=== PATIENT | female | born 1940 | race Caucasian/White ===

== ENCOUNTER → 2017-08-15 | Outpatient (CLI) | payer MEDICARE ==
[~2017-08-15] MED LIST: ALPR0.5T8 PO; APIX5TAB PO; ESOM40CA PO; EZET10 PO; FENT12PAT TD; IOPAMIDOL-370 75 ML VIAL IV ONE; LIDOP TP; MELO-108 PO; SENN8.6C5 PO; TIOT18CA3 IH; ZOLP6.252 PO
== END | disposition home or self-care (01) ==
LOC: DAH 09:35
PROVIDERS: ATTEND Internal Medicine Gastroenterology
DX: N20.0 Calculus of kidney (principal); J47.9 Bronchiectasis, uncomplicated; J84.10 Pulmonary fibrosis, unspecified; I10 Essential (primary) hypertension; E78.5 Hyperlipidemia, unspecified
CPT/HCPCS: 74178; Q9967

== ENCOUNTER 2018-12-01 11:19 | Inpatient (IN) | payer MEDICARE ==
[~2018-12-01] VITALS: Ht 157.5 cm; Wt 57.8 kg
[2018-12-01] VITALS (12 sets, daily range): BP systolic 87–144; BP diastolic 54–89
[~2018-12-01 11:19] MED LIST changes: -IOPAMIDOL-370 75 ML VIAL IV ONE
[2018-12-01] MEDS ORDERED: LACTATED RINGERS 1000ML 1,000 ML IV ONE ×2 (11:32→20:28)
[2018-12-01] MEDS ORDERED: NOREPINEPHRINE BITARTRATE 1 MG/1 ML ML IV ONE (11:32)
[2018-12-01] MEDS ORDERED: SODIUM CHLORIDE 0.9% 250 ML IV ONE (11:33)
[2018-12-01 11:43] LABS: ABG BASE EXCESS -0.2 mmol/L (-2.0-3.0); ABG HCO3 24.4 mmol/L (21.0-28.0); ABG OXYGEN SATURATION 99.5 % (95.0-99.0); ABG PCO2 40 mmHg (32-45)
[2018-12-01 12:29] LABS: BASOPHILS % (AUTO) 0.1 % (0.0-5.0); EOSINOPHILS % (AUTO) 0.5 % (0.0-8.0); HEMATOCRIT 39.9 % (36-48); LYMPHOCYTES % (AUTO) 1.5 % (21.0-51.0); MEAN CORPUSCULAR HEMOGLOBIN 25.7 pg (27.0-33.0); MEAN CORPUSCULAR HGB CONC 31.4 g/dL (32.0-36.0); MEAN CORPUSCULAR VOLUME 81.8 fL (79-99); MONOCYTES % (AUTO) 2.4 % (3.0-13.0); NEUTROPHILS % (AUTO) 95.5 % (40.0-77.0); PLATELET COUNT (AUTO) 196 K/uL (130-400); RED BLOOD CELL COUNT(AUTO) 4.88 MIL/uL (4.00-5.50); RED CELL DISTRIBUTION WIDTH 16.9 % (11.0-15.5)
[2018-12-01] MEDS ORDERED: ZOSYN 3.375GM+NS 50ML 50 ML IV ONE (12:29)
[2018-12-01] MEDS ORDERED: VANCOMYCIN 1GM+NS 250ML 250 ML IV ONE (12:40)
[2018-12-01] MEDS ORDERED: SODIUM CHLORIDE 0.9% 1000ML 1,000 ML IV ONE (12:41)
[2018-12-01 12:45] LABS: CREATININE 2.9 mg/dL (0.5-1.5); POTASSIUM 3.8 mmol/L (3.5-5.1)
[2018-12-01 12:49] LABS: INR 1.43 (0.85-1.15); PARTIAL THROMBOPLASTIN TIME 43.7 SEC (26.3-35.5); PROTHROMBIN TIME 14.9 SEC (9.6-11.6)
[2018-12-01 12:51] LABS: B-TYPE NATRIURETIC PEPTIDE 651 pg/mL (0-100)
[2018-12-01 13:08] LABS: ALBUMIN 2.8 g/dL (3.5-5.0); BILIRUBIN,DIRECT 0.2 mg/dL (0.0-0.3); BILIRUBIN,TOTAL 0.4 mg/dL (0.2-1.0); TOTAL PROTEIN, SERUM 6.7 g/dL (6.0-8.3)
[2018-12-01 13:21] LABS: BAND NEUTROPHILS % (MANUAL) 3 % (0-2); LYMPHOCYTES % (MANUAL) 2 % (22-44); MAN.DIFF COMMENT-IMPRESSION MANUAL DIFFERENTIAL; MONOCYTES % (MANUAL) 2 % (2-9); PLATELET MORPHOLOGY COMMENT ADEQUATE; SEGMENTED NEUTROPHILS % 93 % (40-70)
[2018-12-01] MEDS ORDERED: NEOMY SULF/BACITRA/POLYMYXIN B 1 EACH PACKET TP ONE (13:32)
[2018-12-01 14:12] LABS: APPEARANCE,URINE TURBID (CLEAR); BILIRUBIN,URINE NEGATIVE (NEGATIVE); COLOR,URINE YELLOW (YELLOW); GLUCOSE, URINE (UA) NEGATIVE (NEGATIVE); KETONES,URINE NEGATIVE (NEGATIVE); LEUKOCYTE ESTERASE ,URINE LARGE (NEGATIVE); NITRATE,URINE POSITIVE (NEGATIVE); OCCULT BLOOD,URINE LARGE (NEGATIVE); PROTEIN,URINE >=300 mg/dL (NEGATIVE)
[2018-12-01 14:18] LABS: WBC,URINE TNTC /HPF (0-1)
[2018-12-01 14:19] LABS: BACTERIA,URINE Many /HPF (None Seen); RBC,URINE 26-50 /HPF (0-1); SQUAMOUS EPITHELIAL CELL,UR Rare /HPF (0-2)
[2018-12-01] MEDS ORDERED: VANCOMYCIN PROTOCOL PER PHARMACY IV PRN (18:00)
[2018-12-01] MEDS ORDERED: COMPOUND IV REFRIGERATED 1 EACH IVSOLN MISC PRN (18:15)
--- NOTE | 2018-12-01 18:42 | NUR ---
RECEIVED FROM ER INTO ICU ROOM 207] VIA STRETCHER, MOANING, CONFUSED PHRASES, R.T. HERE & PLACED HER ON BIPAP ON PRESCRIBED SETTINGS. INITIATED BEDSIDE MONITORING. TACHYCARDIA WITH HR 130'S TO 140'S. RIGHT TIBIA WITH INTRAOSSEOUS ACCESS. RIGHT FEMORAL WITH TRIPLE LUMEN CENTRAL LINE. SOTO CATHETER SECURE TO LEG AND DRAINING BROWNISH CLOUDY URINE. ORIENTED TO ROOM. SPOUSE AT BEDSIDE. UPDATED REGARDING STATUS AND PLAN OF CARE.
--- NOTE | 2018-12-01 19:15 | NUR ---
ASSESSMENT: REPORT RECEIVED. PATIENT OPENS EYES TO VERBAL COMMANDS, ORIENTED X 1, INCOMPREHENSIBLE WORDS, LETHARGIC,FOLLOWS COMMANDS WITH EQUAL HAND INDEPENDENT FREIGHT AGENT, MOVES ALL EXTREMITIES, WENDY 3 MM , LUNGS CLEAR , SHORTNESS OF BREATH ,BIPAP 14/8 40% O2 SATURATION 100, HR ST 138. RIGHT TIBIA WITH INTRAOSSEOUS ACCESS. RIGHT FEMORAL WITH TRIPLE LUMEN CENTRAL LINE. SOTO CATHETER SECURE TO LEG PATENT WITH YELLOW URINE. PULSES PALPABLE, SPOUSE AT BEDSIDE. UPDATED REGARDING STATUS AND PLAN OF CARE. ADMISSION INFORMATION OBTAINED FROM . UNWILLING TO TAKE PATIENT'S JEWELRY/POSSESSIONS HOME, DOUBLE WRIST YELLOW BRACELET AND THICK YELLOW RING. CELL PHONE AND ARMORED TRUCK DRIVER.
[2018-12-01] MEDS ORDERED: FENT-77 TD (19:49)
[2018-12-01] MEDS ORDERED: TORS20TA4 PO (19:49)
[2018-12-01] MEDS ORDERED: POTA20PA41 PO (19:49)
[2018-12-01] MEDS ORDERED: LIDOP TP (19:49)
[2018-12-01] MEDS ORDERED: PRED5TAB44 PO (19:49)
[2018-12-01] MEDS ORDERED: MONT10TA24 PO (19:49)
[2018-12-01] MEDS ORDERED: TIOT4MIS3 IH (19:49)
[2018-12-01] MEDS ORDERED: FAMO40TA7 PO (19:49)
--- NOTE | 2018-12-01 20:24 | NUR ---
LUCIA FRY,CALENDER TENDER NOTIFIED OF PATIENT'S STATUS HR 138, ON BIPAP , LETHARGIC, ON LEVOPHED 2 MCG/MIN- NEW ORDERS RECEIVED.
[2018-12-01] MEDS ORDERED: PHENYLEPHRINE HCL 10 MG in SODIUM CHLORIDE 0.9% 250 ML IV PRN (20:30)
[2018-12-01] MEDS: LACTATED RINGERS 1000ML 1,000 ML IV SCH (20:32)
--- NOTE | 2018-12-01 20:32 | NUR ---
COOL PACKS AND TYLENOL GIVEN FOR TEMP 102.7. LR STARTED AT 100 ML/HR
[2018-12-01] MEDS: ACETAMINOPHEN 325 MG TAB PO PRN (20:34)
[2018-12-01] MEDS: HEPARIN SODIUM 5000UNIT/ML 1ML VIAL SQ SCH (20:34)
[2018-12-01] MEDS: FAMOTIDINE/PF 20 MG/2 ML VIAL IV SCH (20:34)
[2018-12-01] MEDS ORDERED: NOREPINEPHRINE 4MG/NS 250ML 250 ML IV SCH (20:45)
[2018-12-02] VITALS (59 sets, daily range): BP systolic 58–153; BP diastolic 21–113
[2018-12-02] MEDS: ACETAMINOPHEN 325 MG TAB PO PRN (02:31)
[2018-12-02 04:09] LABS: HEMATOCRIT 36.5 % (36-48); MEAN CORPUSCULAR HEMOGLOBIN 25.8 pg (27.0-33.0); MEAN CORPUSCULAR HGB CONC 31.4 g/dL (32.0-36.0); MEAN CORPUSCULAR VOLUME 82.2 fL (79-99); PLATELET COUNT (AUTO) 149 K/uL (130-400); RED BLOOD CELL COUNT(AUTO) 4.45 MIL/uL (4.00-5.50); RED CELL DISTRIBUTION WIDTH 16.9 % (11.0-15.5); WHITE BLOOD COUNT (AUTO) 15.2 K/uL (4.8-10.8)
[2018-12-02 04:23] LABS: CREATININE 2.2 mg/dL (0.5-1.5); POTASSIUM 3.4 mmol/L (3.5-5.1)
[2018-12-02] MEDS: LACTATED RINGERS 1000ML 1,000 ML IV SCH ×2 (04:34→16:30)
[2018-12-02] MEDS: FAMOTIDINE/PF 20 MG/2 ML VIAL IV SCH ×2 (08:37→21:07)
[2018-12-02] MEDS: HEPARIN SODIUM 5000UNIT/ML 1ML VIAL SQ SCH ×2 (08:38→14:00)
[2018-12-02] MEDS: ZOSYN 3.375GM+NS 50ML 50 ML IV SCH ×2 (08:38→21:07)
[2018-12-02 10:58] LABS: ABG BASE EXCESS 1.1 mmol/L (-2.0-3.0); ABG HCO3 27.5 mmol/L (21.0-28.0); ABG OXYGEN SATURATION 91.5 % (95.0-99.0); ABG PCO2 50 mmHg (32-45)
[2018-12-02 11:31] LABS: ALBUMIN 2.3 g/dL (3.5-5.0); BILIRUBIN,DIRECT 0.2 mg/dL (0.0-0.3); BILIRUBIN,TOTAL 0.4 mg/dL (0.2-1.0)
[2018-12-02 11:43] LABS: TROPONIN I 0.07 ng/mL (0.00-0.06)
[2018-12-02 12:00] LABS: THYROID STIMULATING HORMONE 0.53 uIU/mL (0.36-3.74)
[2018-12-02] MEDS ORDERED: SENNOSIDES 8.6 MG TABLET PO PRN (14:30)
[2018-12-02] MEDS ORDERED: MORPHINE SULFATE 2 MG/ML 1ML SYG ONE (15:52)
--- NOTE | 2018-12-02 17:47 | NUR ---
cm note met with patient and spouse, resides at home with spouse, pt independent with bath and ambulation, [facility] has a walker but does not need to use it. also has portable o2 and concentrator uses as needed. [facility] dc plan is back to same home setting at [facility]. no dc needs. spouse drives pt to md, etc. Addendum: 12/02/18 at 1749 by KENY GAVIN CM Amended: Links added.
[2018-12-02] MEDS: IPRATROPIUM 0.5 MG/2.5 ML INH IH SCH ×2 (18:36→23:29)
[2018-12-02] MEDS: ALBUTEROL SULFATE 0.083% 2.5 MG/3 ML INH IH SCH ×2 (18:37→23:29)
[2018-12-02] MEDS: BUDESONIDE 0.5 MG/2 ML INH IH SCH (18:37)
--- NOTE | 2018-12-02 18:45 | NUR ---
Received report ,pt is DNR on Levophed @4mcg.Pt. has right femoral central line.Pt. is alert and oriented following commands.Pt. instructed to use call light for assistance.Call light placed within reach.
--- NOTE | 2018-12-02 21:05 | NUR ---
Order clarified with LIFT TRUCK MECHANIC Zuleyma Deras regarding pt on both heprain subcutaneous and Eliquis.p.o.Received order to discontinue heprain subcutaneous.
[2018-12-02] MEDS: MONTELUKAST SODIUM 10 MG TAB PO SCH (21:07)
[2018-12-02] MEDS: APIXABAN 5 MG TABLET PO SCH (21:07)
[2018-12-02] MEDS: EZETIMIBE 10 MG TAB PO SCH (21:07)
[2018-12-03] VITALS (22 sets, daily range): BP systolic 89–132; BP diastolic 54–77
[2018-12-03] MEDS: LACTATED RINGERS 1000ML 1,000 ML IV SCH ×3 (04:03→23:10)
[2018-12-03 04:57] LABS: ALANINE AMINOTRANSFERASE 48 U/L (12-78); ALBUMIN 2.1 g/dL (3.5-5.0); ASPARTATE AMINOTRANSFERASE 66 U/L (10-37); BILIRUBIN,TOTAL 0.3 mg/dL (0.2-1.0); CARBON DIOXIDE 32 mmol/L (21-32); CHLORIDE 105 mmol/L (101-111); CREATININE 1.5 mg/dL (0.5-1.5); GLOMERULAR FILTR. RATE CALC 36 mL/min (>60); GLUCOSE,RANDOM 199 mg/dL (70-105); PHOSPHORUS 2.7 mg/dL (2.5-4.9); POTASSIUM 3.1 mmol/L (3.5-5.1); SODIUM SERUM 144 mmol/L (136-145); TOTAL PROTEIN, SERUM 5.8 g/dL (6.0-8.3); UREA NITROGEN, BLOOD 35 mg/dL (7-18)
[2018-12-03 04:59] LABS: AMMONIA < 3 umol/L (11-32); CREATINE KINASE, TOTAL 633 U/L (21-232)
[2018-12-03 05:17] LABS: BASOPHILS % (AUTO) 0.1 % (0.0-5.0); EOSINOPHILS % (AUTO) 0.7 % (0.0-8.0); HEMATOCRIT 30.1 % (36-48); LYMPHOCYTES % (AUTO) 3.6 % (21.0-51.0); MEAN CORPUSCULAR HGB CONC 31.5 g/dL (32.0-36.0); MEAN CORPUSCULAR VOLUME 82.5 fL (79-99); MONOCYTES % (AUTO) 2.4 % (3.0-13.0); NEUTROPHILS % (AUTO) 93.2 % (40.0-77.0); RED BLOOD CELL COUNT(AUTO) 3.65 MIL/uL (4.00-5.50); RED CELL DISTRIBUTION WIDTH 17.4 % (11.0-15.5); WHITE BLOOD COUNT (AUTO) 6.2 K/uL (4.8-10.8)
[2018-12-03 05:44] LABS: PLATELET COUNT (AUTO) 144 K/uL (130-400)
[2018-12-03 05:45] LABS: B-TYPE NATRIURETIC PEPTIDE 323 pg/mL (0-100)
--- NOTE | 2018-12-03 07:09 | NUR ---
made rounds and updated with pt. condition and lab results.Received new order.
[2018-12-03] MEDS ORDERED: POTASSIUM CHLORIDE 20 MEQ ERTAB PO PRN (07:15)
[2018-12-03] MEDS ORDERED: POTASSIUM CHLORIDE 10% ELIXIR 20 MEQ/15 ML UDCUP PO PRN (07:15)
[2018-12-03] MEDS ORDERED: LIDOCAINE HCL-MPF 1% 2ML VIAL IVP PRN (07:15)
[2018-12-03] MEDS: BUDESONIDE 0.5 MG/2 ML INH IH SCH ×2 (07:42→20:18)
[2018-12-03] MEDS: ALBUTEROL SULFATE 0.083% 2.5 MG/3 ML INH IH SCH ×3 (07:42→20:05)
[2018-12-03] MEDS: IPRATROPIUM 0.5 MG/2.5 ML INH IH SCH ×3 (07:44→20:05)
[2018-12-03] MEDS: FAMOTIDINE/PF 20 MG/2 ML VIAL IV SCH ×2 (09:00→21:24)
[2018-12-03] MEDS: ZOSYN 3.375GM+NS 50ML 50 ML IV SCH ×2 (09:30→21:24)
[2018-12-03] MEDS ORDERED: MIDODRINE HCL 5 MG TABLET ONE (10:04)
[2018-12-03] MEDS: PANTOPRAZOLE SODIUM 40 MG TABLET.DR PO SCH (10:05)
[2018-12-03] MEDS: APIXABAN 5 MG TABLET PO SCH ×2 (10:05→21:23)
[2018-12-03] MEDS ORDERED: MIDODRINE HCL 5 MG TABLET PO SCH (12:08)
[2018-12-03] MEDS ORDERED: VANCOMYCIN 0.75 GM in SODIUM CHLORIDE 0.9% 250 ML IV SCH (12:30)
[2018-12-03] MEDS: MIDODRINE HCL 5 MG TABLET PO SCH ×2 (14:43→21:23)
[2018-12-03] MEDS: EZETIMIBE 10 MG TAB PO SCH (21:23)
[2018-12-03] MEDS: MONTELUKAST SODIUM 10 MG TAB PO SCH (21:23)
--- NOTE | 2018-12-03 23:00 | NUR ---
Pt.c/o Left lower quadrant pain,HEELER Qing was called and notified.Received new order.
[2018-12-03] MEDS ORDERED: MORPHINE SULFATE 2 MG/ML 1ML SYG ONE (23:02)
[2018-12-04] VITALS (7 sets, daily range): BP systolic 98–146; BP diastolic 58–82
[2018-12-04] MEDS: ALBUTEROL SULFATE 0.083% 2.5 MG/3 ML INH IH SCH ×5 (00:18→23:43)
[2018-12-04] MEDS: IPRATROPIUM 0.5 MG/2.5 ML INH IH SCH ×5 (00:18→23:43)
[2018-12-04 03:56] LABS: BASOPHILS % (AUTO) 0.1 % (0.0-5.0); HEMATOCRIT 28.8 % (36-48); LYMPHOCYTES % (AUTO) 2.9 % (21.0-51.0); MEAN CORPUSCULAR HEMOGLOBIN 26.2 pg (27.0-33.0); PLATELET COUNT (AUTO) 98 K/uL (130-400); RED BLOOD CELL COUNT(AUTO) 3.51 MIL/uL (4.00-5.50); RED CELL DISTRIBUTION WIDTH 17.3 % (11.0-15.5)
[2018-12-04 04:07] LABS: CREATININE 1.3 mg/dL (0.5-1.5); MAGNESIUM 2.1 mg/dL (1.80-2.40); PHOSPHORUS 1.9 mg/dL (2.5-4.9)
[2018-12-04 04:29] LABS: POTASSIUM 2.8 mmol/L (3.5-5.1)
[2018-12-04] MEDS: POTASSIUM CHLORIDE 20MEQ/100ML 100 ML IV PRN (05:09)
[2018-12-04] MEDS: MIDODRINE HCL 5 MG TABLET PO SCH ×3 (06:39→22:00)
[2018-12-04] MEDS: PANTOPRAZOLE SODIUM 40 MG TABLET.DR PO SCH (06:39)
[2018-12-04] MEDS: BUDESONIDE 0.5 MG/2 ML INH IH SCH ×2 (07:50→19:01)
--- NOTE | 2018-12-04 08:00 | NUR ---
Blood culture results positive for ESBL e.coli; reported to Terell Bañuelos NP for [facility]. Pt already on vanco and zosyn. Also notified PATIENT ESCORT that pt has not had BM since 11/30. Regarding bcx, rec'd orders for picc placement and dc planning for snf; regarding no bm, rec'd orders for lactulose docusate, senna.
[2018-12-04] MEDS ORDERED: LACTULOSE 20 GM/30 ML UDCUP PO PRN (08:15)
[2018-12-04] MEDS: LACTATED RINGERS 1000ML 1,000 ML IV SCH ×2 (08:30→18:30)
--- NOTE | 2018-12-04 08:45 | NUR ---
PT anxious, c/o llq pain, abd soft, tender. Pt refused all po meds, is anxious at present. PRN morphine administered. Will re-attempt when pain resolved.
[2018-12-04] MEDS: MORPHINE SULFATE 2 MG/ML 1ML SYG IVP PRN (08:48)
[2018-12-04] MEDS: FAMOTIDINE/PF 20 MG/2 ML VIAL IV SCH ×2 (08:48→21:52)
[2018-12-04] MEDS: ZOSYN 3.375GM+NS 50ML 50 ML IV SCH ×2 (08:54→21:56)
[2018-12-04] MEDS: DOCUSATE SODIUM 100 MG CAP PO SCH ×2 (09:00→21:00)
[2018-12-04] MEDS: APIXABAN 5 MG TABLET PO SCH ×2 (09:00→21:00)
--- NOTE | 2018-12-04 12:00 | NUR ---
Rec'd telephone order for fleets enema from LANCE Bryan after reporting that pt refused all po meds this am. Enema administered, pt assisted to bedside commode. Pt unable to pass stool except for one small hard piece. Pt became tired and was assisted back to bed; LANCE Leon in room, reported pink tinge to stool, abd pain. Rec'd order for not to attempt manual disimpaction, no further fleets at present, until results of KUB.
--- NOTE | 2018-12-04 12:28 | NUR ---
Ativan 0.5 mg given for anxiety.
[2018-12-04] MEDS ORDERED: LORAZEPAM 2 MG/ML 1 ML VIAL IVP ONE ×2 (13:20→15:15)
--- NOTE | 2018-12-04 13:27 | NUR ---
HR 140's on tele monitor, respiration 52, O2 sat 70%. Pt pale, diaphoretic. Random glucose wnl. Placed pt on NRB mask, o2 sat up to 96%. Notified RICHI Hannah NP. Orders rec'd for another dose of Ativan, which was given. Labs, abg's drawn. Pt placed on bipap, initiated 500 ml bolus.
[2018-12-04] MEDS ORDERED: SODIUM CHLORIDE 0.9% 500ML 500 ML IV ONE (13:35)
[2018-12-04 13:44] LABS: ABG BASE EXCESS 2.6 mmol/L (-2.0-3.0); ABG HCO3 28.6 mmol/L (21.0-28.0); ABG OXYGEN SATURATION 79.1 % (95.0-99.0); ABG PCO2 50 mmHg (32-45)
[2018-12-04] MEDS ORDERED: SODIUM CHLORIDE 0.9% 500ML 500 ML IV SCH (13:45)
--- NOTE | 2018-12-04 14:30 | NUR ---
Dr. Salinas in room, pt still somewhat restless, but had calmed since administration of 2nd dose ativan. Mittens applied, order from Dr. Salinas to remove femoral central line when picc placed, prn haldol 2.5 mg iv (1st dose now), lasix 20 iv x 1. Bipap removed by Dr. Salinas, NRB replaced. Meds given, 1:1 sitter in room.
[2018-12-04 14:38] LABS: ALBUMIN 2.1 g/dL (3.5-5.0); BILIRUBIN,TOTAL 0.8 mg/dL (0.2-1.0); CREATININE 1.1 mg/dL (0.5-1.5); POTASSIUM 4.9 mmol/L (3.5-5.1); TOTAL PROTEIN, SERUM 6.3 g/dL (6.0-8.3)
[2018-12-04 14:39] LABS: BASOPHILS % (AUTO) 0.2 % (0.0-5.0); EOSINOPHILS % (AUTO) 0.1 % (0.0-8.0); HEMATOCRIT 32.8 % (36-48); LYMPHOCYTES % (AUTO) 1.7 % (21.0-51.0); MEAN CORPUSCULAR HEMOGLOBIN 25.7 pg (27.0-33.0); MEAN CORPUSCULAR HGB CONC 31.2 g/dL (32.0-36.0); MEAN CORPUSCULAR VOLUME 82.4 fL (79-99); MONOCYTES % (AUTO) 3.8 % (3.0-13.0); NEUTROPHILS % (AUTO) 94.2 % (40.0-77.0); PLATELET COUNT (AUTO) 115 K/uL (130-400); RED BLOOD CELL COUNT(AUTO) 3.98 MIL/uL (4.00-5.50); RED CELL DISTRIBUTION WIDTH 17.7 % (11.0-15.5)
[2018-12-04] MEDS ORDERED: HALOPERIDOL LACTATE 5 MG/ML VIAL IV SCH (16:15)
[2018-12-04] MEDS ORDERED: FUROSEMIDE 10 MG/ML 2ML VIAL IV SCH (16:15)
--- NOTE | 2018-12-04 16:23 | NUR ---
DC PLAN VISITED WITH PATIENT AND SPOUSE. PATIENT CONDITION WORSENED VERIFIED WITH ABOUT DNR. SAID YES VERY CLEAR ON THE DNR. PATIENT NOT STABLE FOR TRANSFER TO ANOTHER FACILITY. SPOKE TO JACIEL LET HER KNOW ALSO THAT I NEEDED TO KNOW ABOUT WHICH ABX, LENGTH OF NEED AND IF PATIENT NEEDED PICC LINE. SHE ASKED IF DR. Guillory WAS ON THE CASE I SAID NO AND IF SHE WANTED HIM CONSULTED. SAID NO PATIENT IS ALREADY A DAY 3. CM WILL CONTINUE TO FOLLOW. Addendum: 12/04/18 at 1626 by CHRIS KIRAN RN CM Amended: Links added.
--- NOTE | 2018-12-04 17:00 | NUR ---
Placed new johansen cath per RICHI Hannah's orders. 16 serbian, sterile technique per hospital protocol. Statlock applied. Rec'd 600 cc light david urine. Pt tolerated well. at side during entire shift.
--- NOTE | 2018-12-04 18:00 | NUR ---
Message left with Dr. Garcia to notify of consult, no response.
[2018-12-04] MEDS: MONTELUKAST SODIUM 10 MG TAB PO SCH (21:00)
[2018-12-04] MEDS: EZETIMIBE 10 MG TAB PO SCH (21:00)
[2018-12-04] MEDS: LORAZEPAM 2 MG/ML 1 ML VIAL IVP PRN (22:24)
[2018-12-04] MEDS: HALOPERIDOL LACTATE 5 MG/ML VIAL IV PRN (23:03)
[2018-12-05] MEDS: MORPHINE SULFATE 2 MG/ML 1ML SYG IVP PRN ×4 (01:52→15:56)
[2018-12-05 03:00] VITALS: BP 140/78
[2018-12-05] MEDS: LACTATED RINGERS 1000ML 1,000 ML IV SCH (04:09)
[2018-12-05] MEDS: MIDODRINE HCL 5 MG TABLET PO SCH ×3 (06:00→21:26)
[2018-12-05] MEDS: ALBUTEROL SULFATE 0.083% 2.5 MG/3 ML INH IH SCH ×5 (06:14→23:35)
[2018-12-05] MEDS: IPRATROPIUM 0.5 MG/2.5 ML INH IH SCH ×4 (06:14→23:35)
[2018-12-05] MEDS: BUDESONIDE 0.5 MG/2 ML INH IH SCH ×2 (06:15→18:20)
[2018-12-05] MEDS: PANTOPRAZOLE SODIUM 40 MG TABLET.DR PO SCH (06:21)
[2018-12-05] MEDS ORDERED: DEXTROSE 50%-WATER 50 ML DISP.SYRIN IV PRN (06:30)
[2018-12-05] MEDS ORDERED: GLUCAGON 1MG KIT 1 MG ML IM PRN (06:30)
[2018-12-05 07:23] LABS: BASOPHILS % (AUTO) 0.2 % (0.0-5.0); HEMATOCRIT 34.8 % (36-48); LYMPHOCYTES % (AUTO) 6.4 % (21.0-51.0); MEAN CORPUSCULAR HEMOGLOBIN 25.7 pg (27.0-33.0); MEAN CORPUSCULAR HGB CONC 30.8 g/dL (32.0-36.0); MEAN CORPUSCULAR VOLUME 83.2 fL (79-99); MONOCYTES % (AUTO) 5.4 % (3.0-13.0); PLATELET COUNT (AUTO) 111 K/uL (130-400); RED BLOOD CELL COUNT(AUTO) 4.18 MIL/uL (4.00-5.50); RED CELL DISTRIBUTION WIDTH 17.7 % (11.0-15.5); WHITE BLOOD COUNT (AUTO) 10.2 K/uL (4.8-10.8)
--- NOTE | 2018-12-05 07:30 | NUR ---
ASSESSMENT PT IS AGITATED, ON BIPAP. 1:1 SITTER AT BEDSIDE. BREATHING PATTERN IS TACHYPNIC ON BIPAP. MD ROUNDED AND ORDERS RECEIVED.
[2018-12-05 07:37] VITALS: BP 129/68
[2018-12-05 07:44] LABS: PARTIAL THROMBOPLASTIN TIME 28.9 SEC (26.3-35.5); PROTHROMBIN TIME 10.5 SEC (9.6-11.6)
[2018-12-05 07:45] LABS: ALBUMIN 2.5 g/dL (3.5-5.0); BILIRUBIN,TOTAL 0.5 mg/dL (0.2-1.0); CREATININE 1.1 mg/dL (0.5-1.5); MAGNESIUM 1.6 mg/dL (1.80-2.40); TOTAL PROTEIN, SERUM 6.4 g/dL (6.0-8.3)
[2018-12-05] MEDS ORDERED: FUROSEMIDE 10 MG/ML 2ML VIAL IV SCH (07:45)
--- NOTE | 2018-12-05 07:45 | NUR ---
STATUS PRN MORPHINE GIVEN, POTASSIUM IV PER PROTOCOL GIVEN. 1:1 SITTER AT BEDSIDE, CONTINUING TO MONITOR.
[2018-12-05 07:49] LABS: POTASSIUM 2.4 mmol/L (3.5-5.1)
[2018-12-05] MEDS: POTASSIUM CHLORIDE 20MEQ/100ML 100 ML IV PRN ×5 (08:13→23:46)
[2018-12-05] MEDS: APIXABAN 5 MG TABLET PO SCH ×2 (08:13→21:00)
[2018-12-05] MEDS: POLYETHYLENE GLYCOL 3350 17 GM POWD.PACK PO SCH (08:13)
[2018-12-05] MEDS: DOCUSATE SODIUM 100 MG CAP PO SCH ×2 (08:14→21:00)
[2018-12-05] MEDS: ZOSYN 3.375GM+NS 50ML 50 ML IV SCH (08:16)
[2018-12-05] MEDS: FAMOTIDINE/PF 20 MG/2 ML VIAL IV SCH (08:17)
--- NOTE | 2018-12-05 08:30 | NUR ---
STATUS RESTING IN BED, BREATHING PATTERN IS CALMER NOW, REMAINS ON BIPAP, 1:1 SITTER AT BEDSIDE.
--- NOTE | 2018-12-05 11:30 | NUR ---
STATUS PATIENT IS RESTING, 1:1 SITTER AT BEDSIDE, ALSO AT BEDSIDE. UPDATES GIVEN.
--- NOTE | 2018-12-05 11:46 | NUR ---
Patient very combative, but is able to comprehend. Has been trying to take bipap throughout morning. Patient was placed on 40% venti mask for oral care and comfort. Rendered oral care, patient became more calm after being off bipap. Addendum: 12/05/18 at 1358 by MATT MCNAMARA RT Amended: Links added.
[2018-12-05] MEDS: MEROPENEM 1 GM VIAL IVP SCH ×2 (12:21→20:22)
[2018-12-05 12:24] VITALS: BP 126/84
[2018-12-05 12:30] LABS: POTASSIUM 2.5 mmol/L (3.5-5.1)
--- NOTE | 2018-12-05 12:35 | NUR ---
REPORT GIVEN TO PEDRO KENYON
[2018-12-05] MEDS: LORAZEPAM 2 MG/ML 1 ML VIAL IVP PRN (12:54)
--- NOTE | 2018-12-05 13:02 | NUR ---
PT STATUS REPORT RECEIVED FROM PRIMARY NURSE, PT WITH 1:1 SITTER, AGITATED, RESTLESS AND SWIGGING ARMS IN MITTENS, ATIVAN 1MG GIVEN IVP, PT CALM AND RESTING COMFORTABLE NOW, SPOUSE AT BEDSIDE, ALL QUESTIONS AND CONCERNS ANSWERED.
[2018-12-05 15:18] VITALS: BP 131/80
[2018-12-05 19:22] VITALS: BP 101/68
--- NOTE | 2018-12-05 20:00 | NUR ---
ASSESSED PT FOR PICC PLACEMENT, PT CONFUSED AND COMBATIVE. NOT ABLE TO ASSESS ARM FOR VEIN ACCESS. NOTIFIED PRIMARY NURSE OF NOT ABLE TO DO PICC LINE AT THIS TIME.
[2018-12-05] MEDS: HALOPERIDOL LACTATE 5 MG/ML VIAL IV PRN (20:16)
[2018-12-05] MEDS: MONTELUKAST SODIUM 10 MG TAB PO SCH (21:00)
[2018-12-05] MEDS: LACTULOSE 20 GM/30 ML UDCUP PO SCH (21:00)
[2018-12-05] MEDS: EZETIMIBE 10 MG TAB PO SCH (21:00)
[2018-12-05 23:07] VITALS: BP 107/71
[2018-12-06 03:18] VITALS: BP 113/78
[2018-12-06] MEDS: MEROPENEM 1 GM VIAL IVP SCH ×3 (03:36→21:14)
[2018-12-06] MEDS: MIDODRINE HCL 5 MG TABLET PO SCH ×3 (03:37→22:00)
[2018-12-06] MEDS: MORPHINE SULFATE 2 MG/ML 1ML SYG IVP PRN ×3 (03:43→13:10)
[2018-12-06] MEDS: ALBUTEROL SULFATE 0.083% 2.5 MG/3 ML INH IH SCH ×4 (07:02→18:58)
[2018-12-06] MEDS: IPRATROPIUM 0.5 MG/2.5 ML INH IH SCH ×4 (07:02→19:03)
[2018-12-06] MEDS: BUDESONIDE 0.5 MG/2 ML INH IH SCH ×2 (07:02→19:09)
--- NOTE | 2018-12-06 07:35 | NUR ---
Bedside report given to incoming NOD using SBAR.All questions answered.
[2018-12-06 07:40] VITALS: BP 118/66
[2018-12-06] MEDS: APIXABAN 5 MG TABLET PO SCH ×2 (09:00→21:00)
[2018-12-06] MEDS ORDERED: METHYLPREDNISOLONE SOD SUCC 125MG/2ML VIAL IVP SCH (09:00)
[2018-12-06] MEDS: LACTULOSE 20 GM/30 ML UDCUP PO SCH ×2 (09:00→21:00)
[2018-12-06] MEDS: DOCUSATE SODIUM 100 MG CAP PO SCH ×2 (09:00→21:00)
[2018-12-06] MEDS: FAMOTIDINE/PF 20 MG/2 ML VIAL IV SCH (09:59)
[2018-12-06] MEDS: POLYETHYLENE GLYCOL 3350 17 GM POWD.PACK PO SCH (11:18)
[2018-12-06] MEDS ORDERED: FUROSEMIDE 10 MG/ML 4ML VIAL IV SCH (11:30)
--- NOTE | 2018-12-06 11:42 | NUR ---
DC PLAN VISITED WITH . PATIENT STILL CONFUSED AND HAVING RESPIRATORY ISSUES. SPENT 30 MIN WITH DISCUSSING LTAC. SAID WANTS TO WAIT 2 DAYS BEFORE MAKING DECISION. IF IT LOOKS LIKE ABX ARE WORKING THEN OKAY TO LTAC IF NO THEN [facility] WILL BE HOSPICE. DISCUSSED HOSPICE THE DIFFERENT OPTIONS AND HOW IT WORKS. SAID WILL THINK ABOUT IT WILL TALK TO MD'S. Addendum: 12/06/18 at 1148 by CHRIS KIRAN RN CM Amended: Links added.
[2018-12-06] MEDS ORDERED: PHARMACY COMMUNICATION MISC SCH (11:45)
[2018-12-06] MEDS: INSULIN HUMULIN R 100 UNIT/ML 3ML SQ SCH ×2 (12:00→19:36)
--- NOTE | 2018-12-06 14:00 | NUR ---
UPDATED BRIAN RIZVI OPERATIONS STAFF SPECIALIST SECURITY ON PATIENT STATUS. STATES SHE INFORMED DR. HANNA AND HE WILL GO SEE PT.
--- NOTE | 2018-12-06 14:07 | NUR ---
ORDER TO USE PICC LINE OBTAINED.
[2018-12-06] MEDS: LINEZOLID 600 MG/ISO-OSM 300 ML IV SCH (14:10)
[2018-12-06 14:27] LABS: ABG BASE EXCESS 3.3 mmol/L (-2.0-3.0); ABG HCO3 28.8 mmol/L (21.0-28.0); ABG OXYGEN SATURATION 87.8 % (95.0-99.0); ABG PCO2 47 mmHg (32-45)
[2018-12-06 14:31] VITALS: BP 159/89
[2018-12-06] MEDS: LORAZEPAM 2 MG/ML 1 ML VIAL IVP PRN (14:52)
--- NOTE | 2018-12-06 15:01 | NUR ---
DR. HANNA SAW PATIENT. NEW ORDERS RECEIVED. UPDATED ON ABG RESULTS. NEW ORDERS RECEIVED.
[2018-12-06 15:16] VITALS: BP 158/82
[2018-12-06] MEDS ORDERED: CLINIMIX E 5%-15% 2,000 ML IV SCH (17:45)
[2018-12-06] MEDS: METHYLPREDNISOLONE SOD SUCC 40MG/ML 1ML IVP SCH (18:43)
[2018-12-06 19:08] VITALS: BP 143/81
[2018-12-06] MEDS: EZETIMIBE 10 MG TAB PO SCH (21:00)
[2018-12-06] MEDS: MONTELUKAST SODIUM 10 MG TAB PO SCH (21:00)
[2018-12-06] MEDS: FUROSEMIDE 10 MG/ML 2ML VIAL IV SCH (21:14)
[2018-12-06 23:12] VITALS: BP 149/70
[2018-12-07] MEDS: ALBUTEROL SULFATE 0.083% 2.5 MG/3 ML INH IH SCH
[2018-12-07] MEDS: IPRATROPIUM 0.5 MG/2.5 ML INH IH SCH ×5 (00:05→23:20)
[2018-12-07] MEDS: METHYLPREDNISOLONE SOD SUCC 40MG/ML 1ML IVP SCH ×3 (00:16→22:04)
[2018-12-07] MEDS: INSULIN HUMULIN R 100 UNIT/ML 3ML SQ SCH ×4 (00:32→18:24)
--- NOTE | 2018-12-07 03:00 | NUR ---
Assumed care at this time,pt. resting quietly at this time,pt. has been tachypneic and tachycardic,on Bipap occasionally moving lower extremeties but to no direction.Appears calm and comfortable.
[2018-12-07] MEDS: LINEZOLID 600 MG/ISO-OSM 300 ML IV SCH ×2 (03:04→13:06)
[2018-12-07 04:08] LABS: EOSINOPHILS % (AUTO) 0.1 % (0.0-8.0); HEMATOCRIT 38.5 % (36-48); MEAN CORPUSCULAR HGB CONC 30.2 g/dL (32.0-36.0); MEAN CORPUSCULAR VOLUME 86.2 fL (79-99); MONOCYTES % (AUTO) 2.9 % (3.0-13.0); NUCLEATED RED BLOOD CELLS 0.1 % (0.0-0.19); PLATELET COUNT (AUTO) 309 K/uL (130-400); RED BLOOD CELL COUNT(AUTO) 4.46 MIL/uL (4.00-5.50); RED CELL DISTRIBUTION WIDTH 18.9 % (11.0-15.5); WHITE BLOOD COUNT (AUTO) 13.1 K/uL (4.8-10.8)
[2018-12-07] MEDS: MIDODRINE HCL 5 MG TABLET PO SCH ×3 (04:14→21:42)
[2018-12-07] MEDS: MEROPENEM 1 GM VIAL IVP SCH ×3 (04:19→22:03)
[2018-12-07 04:23] LABS: ALBUMIN 2.4 g/dL (3.5-5.0); BILIRUBIN,TOTAL 0.4 mg/dL (0.2-1.0); CREATININE 1.7 mg/dL (0.5-1.5); MAGNESIUM 2.3 mg/dL (1.80-2.40); POTASSIUM 3.5 mmol/L (3.5-5.1)
--- NOTE | 2018-12-07 06:01 | NUR ---
patient resting in bed. Tachy in 130s, md aware. Patient tachypneic 38-40 bpm with bipap at 60 fio2. Patient responds with incomprehensible sounds. Sitter at bedside. Receiving IVF nutritions via picc line. Tolerating well.
[2018-12-07] MEDS: BUDESONIDE 0.5 MG/2 ML INH IH SCH ×2 (07:15→19:16)
[2018-12-07 08:10] VITALS: BP 115/65
[2018-12-07] MEDS: DOCUSATE SODIUM 100 MG CAP PO SCH ×2 (09:00→21:00)
[2018-12-07] MEDS ORDERED: INSULIN GLARGINE 100 UNITS/ML 10 ML VIAL SQ ONE (09:00)
[2018-12-07] MEDS: POLYETHYLENE GLYCOL 3350 17 GM POWD.PACK PO SCH (09:00)
[2018-12-07] MEDS: APIXABAN 5 MG TABLET PO SCH (09:00)
[2018-12-07] MEDS ORDERED: CLINIMIX E 5%-15% 2,000 ML IV SCH (09:00)
[2018-12-07] MEDS: LACTULOSE 20 GM/30 ML UDCUP PO SCH ×2 (09:00→21:00)
[2018-12-07] MEDS ORDERED: DIGOXIN 250 MCG/ML 2ML AMP IV SCH (09:00)
[2018-12-07] MEDS: FAMOTIDINE/PF 20 MG/2 ML VIAL IV SCH (09:38)
[2018-12-07] MEDS: FUROSEMIDE 10 MG/ML 2ML VIAL IV SCH ×2 (09:38→22:03)
[2018-12-07] MEDS: DEXTROSE 5%-WATER 1,000 ML IV SCH (09:45)
--- NOTE | 2018-12-07 10:00 | NUR ---
cm note discussed dc planning with dr gupta, informed that cm had discussed ltach with pt spouse, and wishes to wait for now, dr Man states he will discuss options with pt.
[2018-12-07] MEDS ORDERED: ACETAMINOPHEN 650 MG SUPPOSITORY RC ONE (11:37)
--- NOTE | 2018-12-07 11:51 | NUR ---
Nutrition Intervention: Nutrition screen based on LOS x 6 days. Pt. admitted with Dx of Sepsis, resp. failure, UTI, NADEGE, Kidney stone. Pt. NPO- receiving TPN Clinimix 5-15@75ml/Hr(Provides 1278kcal and 90gm Protein). As per Nurse Lydia, pt. on continuous BiPap. As per spouse, refused to consider NG tube placement for feedings. Labs reviewed(Alb 2.4, BUN 40, Creat 1.7, GFR 31, BG 385, Ammonia <3, Na 157). LBM: 11/30/18. Pt. on Colace for lower GI distress. SR-12, loose. BMI: 25.3, normal for age. Recommendations: 1) Continue current TPN. 2) When medically feasible, rec. Heart Healthy Soft diet. 3) Continue to monitor pt's nutritional status and Renal labs. 4) Consult RD as nutrition concerns arise. Addendum: 12/07/18 at [address] Amended: Links added.
[2018-12-07 12:06] LABS: INR 1.09 (0.85-1.15); PARTIAL THROMBOPLASTIN TIME 24.5 SEC (26.3-35.5); PROTHROMBIN TIME 11.4 SEC (9.6-11.6)
[2018-12-07 12:13] VITALS: BP 102/69
[2018-12-07] MEDS: FLUCONAZOLE 400 MG/NS 200 ML 200 ML IV SCH (13:05)
[2018-12-07] MEDS ORDERED: HEPARIN SODIUM 5000UNIT/ML 1ML VIAL IV SCH (13:50)
[2018-12-07] MEDS: HEPARIN 25000 UNITS/250 ML D5W 250 ML IV SCH (14:20)
--- NOTE | 2018-12-07 14:20 | NUR ---
INITIATED HEPARIN DRIP PER PROTOCOL ORDERED BY DR. PENALOZA. BOLUS ADMINISTERED AT 1305. WILL RECHECK PTT AT 2019.
[2018-12-07 15:32] VITALS: BP 123/68
[2018-12-07 19:59] VITALS: BP 93/52
[2018-12-07] MEDS: EZETIMIBE 10 MG TAB PO SCH (21:00)
[2018-12-07] MEDS: MONTELUKAST SODIUM 10 MG TAB PO SCH (21:00)
--- NOTE | 2018-12-07 21:43 | NUR ---
At this time I increased FIO2 to 50% due to SATS 87% on 40%, will continue to monitor patient . Addendum: 12/07/18 at 2145 by ARNIE LUCIA RT Amended: Links added.
[2018-12-07 23:47] VITALS: BP 109/53
[2018-12-08] MEDS: INSULIN HUMULIN R 100 UNIT/ML 3ML SQ SCH ×5 (00:06→23:36)
[2018-12-08] MEDS: DEXTROSE 5%-WATER 1,000 ML IV SCH ×3 (00:10→17:20)
[2018-12-08] MEDS: LINEZOLID 600 MG/ISO-OSM 300 ML IV SCH ×2 (01:40→14:08)
[2018-12-08 02:57] LABS: HEMATOCRIT 40.3 % (36-48); LYMPHOCYTES % (AUTO) 1.4 % (21.0-51.0); MEAN CORPUSCULAR HEMOGLOBIN 25.7 pg (27.0-33.0); MEAN CORPUSCULAR HGB CONC 27.3 g/dL (32.0-36.0); NEUTROPHILS % (AUTO) 89.6 % (40.0-77.0); NUCLEATED RED BLOOD CELLS 0.2 % (0.0-0.19); PLATELET COUNT (AUTO) 256 K/uL (130-400); RED BLOOD CELL COUNT(AUTO) 4.28 MIL/uL (4.00-5.50); RED CELL DISTRIBUTION WIDTH 20.5 % (11.0-15.5); WHITE BLOOD COUNT (AUTO) 17.6 K/uL (4.8-10.8)
[2018-12-08 03:07] LABS: CREATININE 2.4 mg/dL (0.5-1.5); CRP QUANTITATIVE 58.8 mg/L (0.00-9.0); MAGNESIUM 2.3 mg/dL (1.80-2.40); PHOSPHORUS 7.2 mg/dL (2.5-4.9); POTASSIUM 4.2 mmol/L (3.5-5.1)
[2018-12-08 04:50] VITALS: BP 84/44
[2018-12-08 05:03] LABS: ABG HCO3 42.7 mmol/L (21.0-28.0); ABG OXYGEN SATURATION 78.3 % (95.0-99.0); ABG PCO2 > 151 mmHg (32-45)
[2018-12-08 05:19] LABS: ABG BASE EXCESS 6.1 mmol/L (-2.0-3.0); ABG HCO3 42.8 mmol/L (21.0-28.0); ABG OXYGEN SATURATION 77.7 % (95.0-99.0); ABG PCO2 > 151 mmHg (32-45)
[2018-12-08] MEDS: MIDODRINE HCL 5 MG TABLET PO SCH ×4 (06:00→23:44)
--- NOTE | 2018-12-08 06:26 | NUR ---
0577 Spoke with hospitalist media production support manager who ordered ABGs, reported results. Ordered call results to [facility]. 0620 Spoke with Billy Ward ([facility] media production support manager). Orders received.
[2018-12-08] MEDS: MEROPENEM 1 GM VIAL IVP SCH ×3 (06:28→21:37)
[2018-12-08] MEDS: IPRATROPIUM 0.5 MG/2.5 ML INH IH SCH ×5 (06:31→21:16)
--- NOTE | 2018-12-08 06:45 | NUR ---
Dr Julio here. Full report on pt status given. No new orders
[2018-12-08] MEDS: BUDESONIDE 0.5 MG/2 ML INH IH SCH ×2 (06:46→18:55)
[2018-12-08 07:54] VITALS: BP 91/57
[2018-12-08] MEDS: ACETAMINOPHEN 650 MG SUPPOSITORY RC PRN (08:08)
[2018-12-08 08:24] LABS: ABG BASE EXCESS 4.9 mmol/L (-2.0-3.0); ABG HCO3 40.4 mmol/L (21.0-28.0); ABG OXYGEN SATURATION 90.9 % (95.0-99.0); ABG PCO2 142 mmHg (32-45)
[2018-12-08] MEDS: FAMOTIDINE/PF 20 MG/2 ML VIAL IV SCH (08:28)
[2018-12-08] MEDS: FUROSEMIDE 10 MG/ML 2ML VIAL IV SCH ×2 (08:28→21:38)
[2018-12-08] MEDS: METHYLPREDNISOLONE SOD SUCC 40MG/ML 1ML IVP SCH ×2 (08:28→21:38)
[2018-12-08] MEDS: DOCUSATE SODIUM 100 MG CAP PO SCH ×2 (08:29→21:00)
[2018-12-08] MEDS: POLYETHYLENE GLYCOL 3350 17 GM POWD.PACK PO SCH (08:29)
[2018-12-08] MEDS: LACTULOSE 20 GM/30 ML UDCUP PO SCH ×2 (08:29→21:00)
[2018-12-08] MEDS ORDERED: CLINIMIX E 5%-15% 2,000 ML IV SCH (09:00)
[2018-12-08 11:49] VITALS: BP 89/44
[2018-12-08] MEDS: OSELTAMIVIR PHOSPHATE 75 MG CAP PO SCH (12:00)
[2018-12-08] MEDS: FLUCONAZOLE 400 MG/NS 200 ML 200 ML IV SCH (12:37)
[2018-12-08] MEDS ORDERED: SODIUM CHLORIDE 0.9% IV ONE (14:00)
[2018-12-08] MEDS ORDERED: AMINOPHYLLINE IV ONE (14:00)
[2018-12-08] MEDS: HEPARIN 25000 UNITS/250 ML D5W 250 ML IV SCH (14:12)
[2018-12-08 15:49] VITALS: BP 83/51
[2018-12-08 19:31] VITALS: BP 93/56
[2018-12-08] MEDS: MONTELUKAST SODIUM 10 MG TAB PO SCH (21:00)
[2018-12-08] MEDS: EZETIMIBE 10 MG TAB PO SCH (21:00)
--- NOTE | 2018-12-08 23:00 | NUR ---
PT CONTINUES TO BE UNRESPONSIVE. REQUIRES STERNAL RUB TO OPEN EYE. UNABLE TO SPEAK. UNABLE TO MOVE. CONTINUES ON BIPAP, HEPARIN DRIP, TPN, AND IV FLUIDS. CRACKLES/RHONCHI NOTED. RT SUCTIONING NECESSARY.
[2018-12-08 23:45] VITALS: BP 97/65
[2018-12-09] VITALS (7 sets, daily range): BP systolic 60–104; BP diastolic 35–59
--- NOTE | 2018-12-09 01:00 | NUR ---
PERSONAL BELONGING SENT WITH SECURITY TO A SAFE. GOLD COLORED RING THAT WAS FOUND ON HER LEFT HAND SENT TO SECURITY, IT WAS CAUSING SWELLING AROUND THE FINGER AREA AND HAD TO BE REMOVED.
--- NOTE | 2018-12-09 01:15 | NUR ---
PTT 60.1 WITHIN THERAPEUTIC RANGE. WILL CONTINUE AT 800UNITS/HR. HEPARIN SHEET VERIFIED WITH ANNIE KENYON.
[2018-12-09] MEDS: IPRATROPIUM 0.5 MG/2.5 ML INH IH SCH ×6 (01:32→22:23)
[2018-12-09] MEDS: LINEZOLID 600 MG/ISO-OSM 300 ML IV SCH ×2 (01:53→15:10)
[2018-12-09] MEDS ORDERED: SODIUM CHLORIDE 0.9% 10 ML VIAL ONE (04:59)
[2018-12-09] MEDS: MEROPENEM 1 GM VIAL IVP SCH ×3 (05:00→21:15)
[2018-12-09] MEDS: BUDESONIDE 0.5 MG/2 ML INH IH SCH ×2 (06:09→19:02)
[2018-12-09] MEDS: INSULIN HUMULIN R 100 UNIT/ML 3ML SQ SCH ×3 (06:23→18:20)
[2018-12-09] MEDS: DOCUSATE SODIUM 100 MG CAP PO SCH ×2 (08:31→21:00)
[2018-12-09] MEDS: POLYETHYLENE GLYCOL 3350 17 GM POWD.PACK PO SCH (08:31)
[2018-12-09] MEDS: LACTULOSE 20 GM/30 ML UDCUP PO SCH ×2 (08:31→21:00)
--- NOTE | 2018-12-09 08:32 | NUR ---
DR. FRANKLIN IS IN TO SEE PATIENT.
[2018-12-09 08:34] LABS: ABG HCO3 32.5 mmol/L (21.0-28.0); ABG OXYGEN SATURATION 94.7 % (95.0-99.0); ABG PCO2 89 mmHg (32-45)
[2018-12-09] MEDS: FUROSEMIDE 10 MG/ML 2ML VIAL IV SCH ×2 (09:54→21:16)
[2018-12-09] MEDS: FAMOTIDINE/PF 20 MG/2 ML VIAL IV SCH (09:54)
[2018-12-09] MEDS: METHYLPREDNISOLONE SOD SUCC 40MG/ML 1ML IVP SCH ×2 (09:54→21:16)
[2018-12-09] MEDS ORDERED: CLINIMIX E 5%-15% 2,000 ML IV NR (11:01)
--- NOTE | 2018-12-09 11:50 | NUR ---
Dr. Madrid made changes to bipap. BUR increased to 28bpm & FiO2 weaned to .40 tks 88% or >.
[2018-12-09] MEDS: OSELTAMIVIR PHOSPHATE 75 MG CAP PO SCH (12:00)
[2018-12-09] MEDS: FLUCONAZOLE 400 MG/NS 200 ML 200 ML IV SCH (12:10)
[2018-12-09] MEDS: DEXTROSE 5%-WATER 1,000 ML IV SCH (12:10)
--- NOTE | 2018-12-09 12:10 | NUR ---
DR. BLOUNT IS IN TO SEE PATIENT. RELAYED TO MD LAST ABG RESULTS. MD CHANGED BIPAP SETTINGS. ALSO INFORMED MD THAT PATIENT'S URINE OUTPUT HAS BEEN LOW. ADDITIONAL DOSE OF LASIX ORDERED. BLOOD SUGAR 456 WAS ALSO REPORTED. MD ORDERED FOR PATIENT TO BE STARTED ON NPH. AMINOPHYLLIN DRIP TO BE STARTED WELL.
[2018-12-09] MEDS ORDERED: FUROSEMIDE 10 MG/ML 4ML VIAL IV SCH (12:15)
[2018-12-09] MEDS ORDERED: SODIUM CHLORIDE 0.9% IV SCH (12:15)
[2018-12-09] MEDS ORDERED: AMINOPHYLLINE IV SCH (12:15)
--- NOTE | 2018-12-09 12:30 | NUR ---
CLINIMIX RATE ADJUSTED TO 50ML/HR ORDERED.
[2018-12-09] MEDS: MIDODRINE HCL 5 MG TABLET PO SCH ×2 (12:58→21:28)
[2018-12-09] MEDS: INSULIN NPH 100 UNIT/ML 3ML SQ SCH (12:58)
[2018-12-09 13:25] LABS: CREATININE 4.3 mg/dL (0.5-1.5); POTASSIUM 3.7 mmol/L (3.5-5.1)
[2018-12-09] MEDS: EZETIMIBE 10 MG TAB PO SCH (21:00)
[2018-12-09] MEDS: MONTELUKAST SODIUM 10 MG TAB PO SCH (21:00)
--- NOTE | 2018-12-09 22:19 | NUR ---
At this time I increased FIO2 to 70% patient was only saturating 84% on 40%, I did NTSX with 14 ethiopian due to patient sounding very course janine. upper and lower lobes sats increased to 91% on 70% will continue to monitor patien, nurse was notified of changes. Addendum: 12/09/18 at 2223 by ARNIE LUCIA RT Amended: Links added.
[2018-12-09] MEDS ORDERED: SODIUM BICARB 50MEQ 50ML VIAL ONE (22:53)
[2018-12-09] MEDS ORDERED: ALBUMIN (HUMAN) 5% 250 ML IV ONE (22:56)
[2018-12-09] MEDS ORDERED: SODIUM BICARB 8.4% 50ML SYRINGE IVP SCH (23:00)
[2018-12-09] MEDS ORDERED: ALBUMIN (HUMAN) 5% 250 ML IV SCH (23:00)
[2018-12-09] MEDS ORDERED: DOPAMINE HCL 400 MG/D5%-WATER 250 ML IV ONE (23:18)
--- NOTE | 2018-12-09 23:27 | NUR ---
SPOUSE CALL PLACED TO 'S PHONE--LEFT VOICE MESSAGE
--- NOTE | 2018-12-09 23:29 | NUR ---
TRANSFER PT. TRANSFERRED WITH O2 AND ASSIST FROM RT TO ROOM 218
[2018-12-09] MEDS ORDERED: PHARMACY COMMUNICATION MISC SCH (23:30)
[2018-12-09] MEDS ORDERED: DOPAMINE HCL 400 MG in SODIUM CHLORIDE 0.9% 240 ML IV PRN (23:30)
--- NOTE | 2018-12-09 23:35 | NUR ---
RECEIVED FROM 231 BY BED . PLACED ON FIREFIGHTER MARINE, NIBP, PULSE OXIMETER. HAS DOPAMINE DRIP INFUSING AT 20MCG/KG/MIN. HEPARIN INFUSING AT 8 CC/HR. MONITOR SHOWS ST. ON BIPAP WITH ORDERED SETTINGS. UNRESPONSIVE STILL FROM FLOOR. SEE FLOW SHEET.
--- NOTE | 2018-12-09 23:38 | NUR ---
SPOUSE HAS CALLED BACK GIVING HIS APPROVAL TO THE PHYSICIAN'S DECISION ADMINISTER THE IV MEDICATION TO RAISE HER BLOOD PRESSURE STATING " LONG IT IS NOT INTRUSIVE."
[2018-12-09] MEDS: HEPARIN 25000 UNITS/250 ML D5W 250 ML IV SCH (23:52)
[2018-12-10] VITALS (9 sets, daily range): BP systolic 53–90; BP diastolic 21–47
[2018-12-10] MEDS: INSULIN HUMULIN R 100 UNIT/ML 3ML SQ SCH
[2018-12-10] MEDS: INSULIN NPH 100 UNIT/ML 3ML SQ SCH (00:15)
[2018-12-10] MEDS: IPRATROPIUM 0.5 MG/2.5 ML INH IH SCH (01:18)
--- NOTE | 2018-12-10 01:30 | NUR ---
At about 0130 increased FIO2 to 100% due to saturation level decreasing Sat increased to 98% Addendum: 12/12/18 at 2104 by ARNIE LUCIA RT Amended: Links added.
[2018-12-10] MEDS: LINEZOLID 600 MG/ISO-OSM 300 ML IV SCH (02:40)
--- NOTE | 2018-12-10 03:05 | NUR ---
CADASTRAL ENGINEER CALL TEMP ELEVATED AND CADASTRAL ENGINEER CALLED AND INFORMED OF THIS NO NEW ORDERS RECEIVED.ALSO INFORMED IF SBP IN 70s ON 20 MCG OF DOPAMINE NO NEW ORDERS RECEIVED.
[2018-12-10] MEDS: ACETAMINOPHEN 650 MG SUPPOSITORY RC PRN (03:16)
[2018-12-10] MEDS: MEROPENEM 1 GM VIAL IVP SCH (03:47)
--- NOTE | 2018-12-10 03:50 | NUR ---
At about 0350 I titrated O2 back down decreased to 70%, 50%, left it at 40% sat maintaining at 98% will continue to monitor patient. Addendum: 12/12/18 at 2111 by ARNIE LUCIA RT Amended: Links added.
--- NOTE | 2018-12-10 04:00 | NUR ---
Placed patient back on 100%, CHANTALE Ivy, called me of desaturation on previous setting of 40%. Patient 02 saturation increased to 97%. Addendum: 12/12/18 at 2101 by DARYL SIDHU RT Amended: Links added.
[2018-12-10 04:02] LABS: HEMATOCRIT 33.7 % (36-48); MEAN CORPUSCULAR HEMOGLOBIN 25.6 pg (27.0-33.0); MEAN CORPUSCULAR HGB CONC 28.5 g/dL (32.0-36.0); MEAN CORPUSCULAR VOLUME 89.9 fL (79-99); NUCLEATED RED BLOOD CELLS 0.5 % (0.0-0.19); PLATELET COUNT (AUTO) 151 K/uL (130-400); RED BLOOD CELL COUNT(AUTO) 3.75 MIL/uL (4.00-5.50); RED CELL DISTRIBUTION WIDTH 17.7 % (11.0-15.5); WHITE BLOOD COUNT (AUTO) 28.2 K/uL (4.8-10.8)
[2018-12-10 04:31] LABS: ALBUMIN 2.2 g/dL (3.5-5.0); BILIRUBIN,TOTAL 0.7 mg/dL (0.2-1.0); CREATININE 5.6 mg/dL (0.5-1.5); MAGNESIUM 2.3 mg/dL (1.80-2.40); PHOSPHORUS 10.8 mg/dL (2.5-4.9); POTASSIUM 4.6 mmol/L (3.5-5.1); TOTAL PROTEIN, SERUM 5.8 g/dL (6.0-8.3)
[2018-12-10 04:43] LABS: THEOPHYLLINE 6.4 mcg/mL (10.0-20.0)
--- NOTE | 2018-12-10 04:45 | NUR ---
REALTIME REPORTER CALL SEIZURE ACTIVITY NOTED. ABGS RESULTS POOR. REALTIME REPORTER CALLED TO MAKE AWARE. NO NEW ORDERS RECEIVED.
[2018-12-10 04:51] LABS: ABG BASE EXCESS 0.7 mmol/L (-2.0-3.0); ABG HCO3 39.3 mmol/L (21.0-28.0); ABG OXYGEN SATURATION 98.1 % (95.0-99.0); ABG PCO2 > 151 mmHg (32-45)
--- NOTE | 2018-12-10 05:31 | NUR ---
SPOUSE NOTIFIED OF OF SPOUSE. STATES HE WANTS SECURITY TO COLLECT HER BELONGINGS (2 BAGS) AND KEEP THEM UNTIL HE CAN COME BY AND PICK THEM UP (MAYBE, LATER TODAY).
== END 2018-12-10 05:26 | disposition expired | DRG 871 ==
LOC: EDH 11:19 → EDHIP 17:46 → 2BH 18:40 → 2AH 12-03 15:30 → 2CH 12-09 23:33
PROVIDERS: ADMIT Family Medicine; ATTEND Family Medicine
PROC: 5A09357 Assistance with Respiratory Ventilation, Less than 24 Consecutive Hours, Continuous Positive Airway Pressure (ICD-10-PCS; 2018-12-01)
PROC: 5A09357 Assistance with Respiratory Ventilation, Less than 24 Consecutive Hours, Continuous Positive Airway Pressure (ICD-10-PCS; 2018-12-04)
PROC: 02HV33Z Insertion of Infusion Device into Superior Vena Cava, Percutaneous Approach (ICD-10-PCS; principal; 2018-12-05)
PROC: 5A09357 Assistance with Respiratory Ventilation, Less than 24 Consecutive Hours, Continuous Positive Airway Pressure (ICD-10-PCS; 2018-12-05)
PROC: 5A09357 Assistance with Respiratory Ventilation, Less than 24 Consecutive Hours, Continuous Positive Airway Pressure (ICD-10-PCS; 2018-12-06)
PROC: 5A09357 Assistance with Respiratory Ventilation, Less than 24 Consecutive Hours, Continuous Positive Airway Pressure (ICD-10-PCS; 2018-12-07)
PROC: 5A09357 Assistance with Respiratory Ventilation, Less than 24 Consecutive Hours, Continuous Positive Airway Pressure (ICD-10-PCS; 2018-12-08)
PROC: 5A09357 Assistance with Respiratory Ventilation, Less than 24 Consecutive Hours, Continuous Positive Airway Pressure (ICD-10-PCS; 2018-12-09)
DX: A41.51 Sepsis due to Escherichia coli [E. coli] (principal); R65.21 Severe sepsis with septic shock; J96.21 Acute and chronic respiratory failure with hypoxia; G93.41 Metabolic encephalopathy; J18.9 Pneumonia, unspecified organism; J96.22 Acute and chronic respiratory failure with hypercapnia; N12 Tubulo-interstitial nephritis, not specified as acute or chronic; N17.9 Acute kidney failure, unspecified; J44.0 Chronic obstructive pulmonary disease with (acute) lower respiratory infection; M35.00 Sjogren syndrome, unspecified; Z16.24 Resistance to multiple antibiotics; N20.0 Calculus of kidney; B96.4 Proteus (mirabilis) (morganii) as the cause of diseases classified elsewhere; E78.5 Hyperlipidemia, unspecified; E87.6 Hypokalemia; N18.9 Chronic kidney disease, unspecified; Z16.12 Extended spectrum beta lactamase (ESBL) resistance; Z51.5 Encounter for palliative care; Z66 Do not resuscitate; F17.210 Nicotine dependence, cigarettes, uncomplicated; Z74.01 Bed confinement status; Z79.01 Long term (current) use of anticoagulants; Z86.711 Personal history of pulmonary embolism; Z86.718 Personal history of other venous thrombosis and embolism; Z95.828 Presence of other vascular implants and grafts; Z99.81 Dependence on supplemental oxygen; Z80.6 Family history of leukemia; Z79.899 Other long term (current) drug therapy
CPT/HCPCS: 36415; 36600; 71045; 74018; 74176; 78582; 80048; 80053; 80076; 80198; 80202; 81001; 82140; 82550; 82803; 82948; 83605; 83735; 83874; 83880; 84100; 84132; 84443; 84484; 85025; 85027; 85060; 85610; 85651; 85730; 86140; 87040; 87077; 87088; 87186; 87486; 87581; 87633; 87798; 87804; 93005; 93970; 94640; 94660; 94664; 97039; 99291; A6234; A9540; A9558; C1894; G0378; J0280; J1160; J1265; J1450; J1630; J1644; J1815; J1940; J2020; J2060; J2185; J2370; J2543; J2920; J2930; J3370; J3480; J3490; J7030; J7040; J7070; J7120; P9045